=== PATIENT | male | born 1995 | race Caucasian/White ===

== ENCOUNTER 2024-12-07 00:21 | Emergency (ER) | payer OTHER ==
[~2024-12-07] VITALS: Ht 177.8 cm; Wt 77.1 kg
[2024-12-07 01:04] VITALS: PULSE 67; RESP 16; TEMP 98.6
[2024-12-07] MEDS ORDERED: CEPHALEXIN500 MG PO (01:32)
[2024-12-07 01:41] VITALS: BP 120/81; O2SAT 99
== END 2024-12-07 01:43 | disposition home or self-care (01) ==
LOC: ER 00:35
DX: R60.9 Edema, unspecified (principal); L55.9 Sunburn, unspecified; F98.8 Other specified behavioral and emotional disorders with onset usually occurring in childhood and adolescence
CPT/HCPCS: 99282